=== PATIENT | female | born 1935 | race Caucasian/White ===

== ENCOUNTER 2024-01-25 14:44 | Emergency (ER) | payer OTHER, SELFPAY ==
[2024-01-25] VITALS (17 sets, daily range): BP systolic 122–180; BP diastolic 65–98; BMI 21.0
--- NOTE | 2024-01-25 15:11 | ED.GENMED ---
History of Present Illness
General
Chief Complaint: Cardiac Symptoms
Source: patient
Time Seen by Provider: 01/25/24 14:58
Travel History
Have you had any contact with someone who has COVID-19?: No
Do you have any symptoms of coronavirus? Fever > 100 degrees, chills, cough, shortness of breath, sore throat, loss of taste or smell, muscle aches, or headache?: No
History of Present Illness
History of Present Illness:
88-year-old female presents to the emergency room complaining of palpitations. Patient noted that she was feeling short of breath while doing her exercise class this morning. She also little chest discomfort. She took her vital signs and noted
that her heart rate was elevated in the 120s. Patient does have a history of atrial fibrillation. She takes amiodarone and Eliquis among other daily medications. She states she has not missed any doses. At rest the patient has no symptoms.
Past History
Past History
ED Past Medical History: Negative GERD, Hypercholesterolemia, IDDM, NIDDM or [place]
ED Past Surgical History: Gynecological and Orthopedic (Back surgery,); Negative Appendectomy, Bowel resection or Brain
Social History
Tobacco: Non-smoker
Alcohol: Daily
Drug: None
Personal: Other
Living: with family
Employment: Not employed
Family History
Family History: Other (Noncontributory)
Phy Exam
Physical Exam
Physical Exam:
General: Awake, Alert, Oriented X3. No acute distress.
Vitals: Tachycardic
Head: Atraumatic
Eyes: Pupils equal, EOMI
Throat: Airway intact, no exudates
Neck: Trachea midline
Lungs: Clear and equal b/l
Heart: irregular rate, no murmurs
Abd: Soft, Nontender, No pulsatile mass
Neuro: Nonfocal
Skin: Warm, dry, no rash
Extremities: pulses equal b/l, no edema
Course
Orders/Labs/Results
Orders:
Orders
01/25/24 14:49
Electrocardiogram (*1) Urgent
Reason for Study: Chest Pain
EKG- Treatment ONCE
01/25/24 15:13
Complete Blood Count/With Diff Urgent
TSH Reflex To Free T4 Urgent
Comment: TSH REFLEX ADDED ON BY FLOOR 4PM 01-25-24
01/25/24 15:14
Comprehensive Metabolic Panel Urgent
Prothrombin Time Urgent
Troponin I Urgent
01/25/24 15:16
Propofol [Diprivan] 20 ml .ROUTE .STK-MED
01/25/24 15:38
EKG [Electrocardiogram (*1)] Urgent
Reason for Study: Atrial Fibrillation
EKG- Treatment ONCE
01/25/24 15:56
Add On- LAB Urgent
Tests Added?: TSH with reflex T4
Abnormal Lab Results
01/25/24
15:14
BUN 23 H mg/dl
(7-17)
01/25/24 15:13
01/25/24 15:14
Vital Signs
Initial and Last Documented VS:
Initial Vital Signs
Temp Pulse Resp BP Pulse Ox
98.3 F 107 20 169/92 98
01/25/24 14:47 01/25/24 14:47 01/25/24 14:47 01/25/24 14:47 01/25/24 14:47
Last Documented Vital Signs
Temp Pulse Resp BP Pulse Ox
97.4 F 63 18 152/79 99
01/25/24 17:10 01/25/24 17:10 01/25/24 17:10 01/25/24 17:10 01/25/24 17:10
Procedures
Cardioversion
Indication:: Afib
Performed by:: Myself
Synchronized?: Yes
Energy Used: 200 joules
Number of attempts: 1
Successful?: Yes
ASA Risk Score: Class II
Any reaction or bad outcome to prior sedation/anesthesia?: No history of a reaction
Sedation level to be attained: moderate
Chart and allergies reviewed: Yes
Patient reassessed prior to sedation: Yes
Time out completed at (validating right patient & procedure): 15:43
History of difficult intubation: No
Airway free of obstruction: Yes
Patient has a gag reflex: Yes
Patient is able to open mouth: Yes
Patient has no dentures: No
Patient has no loose teeth: Yes
Medication administered by Provider during Moderate Sedation: IV Propofol (mg)
Total dose administered: 50
Time drug administered: 15:44
Start Time: 15:44
Stop Time: 15:54
MDM/Problems Addressed
Differential Diagnosis Includes:
Atrial fibrillation, atrial flutter, PACs
MDM/Problems Addressed:
EKG is consistent with atrial flutter. Patient asymptomatic while in A-fib\\flutter and would benefit from cardioversion into normal sinus rhythm. She has verified that she has been taking Eliquis twice a day every day and has not missed any doses.
Cardioversion was performed. She did have a fairly significant pauses after synchronized cardioversion. She did ultimately resume sinus rhythm with brief periods of a flutter. Ultimately she was in sinus rhythm and maintained sinus rhythm.
Patient recovered from sedation without issue. She was feeling great and anxious to be discharged home after period of observation.
Chronic conditions affecting care: Arrhythmia (Atrial fibrillation)
*Pulse Oximetry
Patient hypoxic: no
*EKG
Interpreted by ED Provider?: Yes
Interpretation: abnormal
Heart Rate: 97
Rate: normal
Rhythm: a-fib
[place]: normal axis
Interval: normal interval
QRS Pattern: normal QRS
Ischemia: no ischemia
*Fine Wire Drawer Interpretation
Rate: normal
Interpretation: abnormal
Rhythm: a-fib
*Critical Care Note
Total Time (30-74mins, 75-104mins- exclusive of procedures): Not Applicable
ED Attending Note
-
Portions of this chart may have been created with voice recognition software.� Occasional wrong word or��sound alike� substitutions may have occurred due to the inherent limitations of voice recognition software.
Discharge Plan
Departure
Patient Disposition: Home (Routine Discharge)
Date of Disposition: 01/25/24
Time of Disposition: 17:01
Patient with high blood pressure during this ER visit?: Yes
Condition: Good
Discharge Problem:
Paroxysmal A-fib
Instructions: Procedural Sedation, Adult ED, Atrial Fibrillation and Atrial Flutter ED, BLOOD PRESSURE
Prescriptions:
No Action
cyanocobalamin (vitamin B-12) [Vitamin B-12] 2,500 mcg Tablet, Sublingual
2,500 mcg SUBLINGUAL DAILY
lubiprostone 24 mcg Capsule
24 mcg PO BID
Eliquis 2.5 mg Tablet
2.5 mg PO BID
cholecalciferol (vitamin D3) [Vitamin D3] 50 mcg (2,000 unit) Tablet
50 mcg PO DAILY
magnesium oxide 400 mg magnesium Tablet
800 mg PO HS
amiodarone [Pacerone] 100 mg Tablet
100 mg PO DAILY Qty: 90 3RF
levothyroxine 25 mcg Tablet
25 mcg PO DAILY AT 0700 Qty: 90 3RF
Referrals:
Irwin Weaver MD [Active] -
NONE,* [Active] -
Interventions
Interventions:
*Risk Screen - Suicide Last Done: 01/25/24 14:47
*General Assessment Last Done: 01/25/24 15:17
*Neglect/Abuse Screening Last Done: 01/25/24 14:47
ED- Fall Risk Assessment Last Done: 01/25/24 14:47
*ED COVID-19 Vaccine History Last Done: 01/25/24 14:47
*Nursing Disposition Last Done: 01/25/24 17:10
ED- Pulmonary Assessment Last Done: 01/25/24 15:17
ED- Cardiac Assessment Last Done: 01/25/24 15:17
Discharge Date and Time
Print Language: GEORGIAN
[2024-01-25 15:19] LABS: % Basophils 1.1 % (0-2); % Eosinophils 2.1 % (0-6); % Immature Granulocytes 0.2 % (0-0.5); % Lymphocytes 27.1 % (20.5-51.1); % Monocytes 7.4 % (1.7-9.3); % Neutrophils 62.1 % (42.2-75.2); Absolute Basophils 0.1 10^3/uL (0-0.2); Absolute Eosinophils 0.2 10^3/uL (0-0.7); Absolute Lymphocytes 2.2 10^3/uL (1.2-3.4); Absolute Monocytes 0.6 10^3/uL (0.1-0.6); Absolute Neutrophils 5.1 10^3/uL (1.4-6.5); Hematocrit 40.2 % (37.0-47.0); Hemoglobin 14.1 g/dL (12.0-16.0); Mean Corp Hgb Conc. 35.1 g/dL (33.0-37.0); Mean Corpuscular Hgb 29.3 pg (27.0-31.0); Mean Corpuscular Volume 83.4 fL (81.0-99.0); Mean Platelet Volume 9.6 fL (7.4-10.4); Nucleated Red Blood Cells % 0 %; Platelet Count 258 10^3/uL (130-400); Red Blood Cell Count 4.82 10^6/uL (4.20-5.40); Red Cell Dist. Width 13.2 % (11.5-14.5); White Blood Cell Count 8.2 10^3/uL (4.8-10.8)
[2024-01-25 15:30] LABS: INR 1.13; PT 14.4 Sec (11.4-14.6)
[2024-01-25 15:41] LABS: ALT (SGPT) 17 U/L (0-35); AST (SGOT) 30 U/L (14-36); Albumin 4.8 g/dl (3.5-5.0); Alkaline Phosphatase 64 U/L (38-126); Blood Urea Nitrogen 23 mg/dl (7-17); Calcium 10.2 mg/dl (8.4-10.2); Carbon Dioxide 27 mmol/L (22-30); Chloride 105 mmol/L (98-107); Estimated Creatinine Clearance 42 ml/min; Glucose 94 mg/dl (70-99); Potassium 4.1 mmol/L (3.5-5.1); Sodium 137 mmol/L (135-145); Total Bilirubin 0.6 mg/dl (0.2-1.3); Total Protein 7.9 g/dl (6.3-8.2); eGFR > 60.00
[2024-01-25 15:55] LABS: Troponin I < 0.012 ng/ml
--- NOTE | 2024-01-25 17:10 | EDRN ---
Patient ambulated with steady gait to the bathroom. Reviewed discharge instructions with patient and her son. Verbalized understanding. Taken to car in wheelchair.
[2024-01-25 17:22] LABS: TSH Reflex To Free T4 1.83 uIU/ml (0.47-4.68)
== END 2024-01-25 17:10 | disposition home or self-care (01) ==
LOC: EMR 14:44
PROVIDERS: Emergency Medicine; EMERGENCY PHYSICIAN Emergency Medicine; FAMILY PHYSICIAN Internal Medicine
DX: R00.2 Palpitations (principal); I48.91 Unspecified atrial fibrillation; Z79.01 Long term (current) use of anticoagulants; Z90.49 Acquired absence of other specified parts of digestive tract
CPT/HCPCS: 99283; 80053; 84443; 84484; 85025; 85610; 93005

== ENCOUNTER 2024-08-06 12:52 | Day surgery (SDC) | payer OTHER, SELFPAY ==
[2024-08-06] VITALS (20 sets, daily range): BP systolic 99–153; BP diastolic 40–66
[2024-08-06 10:12] LABS: % Basophils 1.5 % (0-2); % Eosinophils 5.5 % (0-6); % Immature Granulocytes 0.6 % (0-0.5); % Lymphocytes 17.1 % (20.5-51.1); % Neutrophils 65.3 % (42.2-75.2); Absolute Basophils 0.1 10^3/uL (0-0.2); Absolute Eosinophils 0.4 10^3/uL (0-0.7); Absolute Lymphocytes 1.2 10^3/uL (1.2-3.4); Absolute Monocytes 0.7 10^3/uL (0.1-0.6); Absolute Neutrophils 4.8 10^3/uL (1.4-6.5); Hematocrit 37.3 % (37.0-47.0); Hemoglobin 12.8 g/dL (12.0-16.0); Mean Corp Hgb Conc. 34.3 g/dL (33.0-37.0); Mean Corpuscular Hgb 28.6 pg (27.0-31.0); Mean Corpuscular Volume 83.3 fL (81.0-99.0); Mean Platelet Volume 9.9 fL (7.4-10.4); Nucleated Red Blood Cells % 0 %; Platelet Count 263 10^3/uL (130-400); Red Blood Cell Count 4.48 10^6/uL (4.20-5.40); Red Cell Dist. Width 13.6 % (11.5-14.5); White Blood Cell Count 7.3 10^3/uL (4.8-10.8)
[2024-08-06 10:23] LABS: ALT (SGPT) 48 U/L (0-35); AST (SGOT) 48 U/L (14-36); Albumin 4.3 g/dl (3.5-5.0); Alkaline Phosphatase 117 U/L (38-126); Blood Urea Nitrogen 27 mg/dl (7-17); Calcium 9.6 mg/dl (8.4-10.2); Carbon Dioxide 24 mmol/L (22-30); Chloride 104 mmol/L (98-107); Glucose 76 mg/dl (70-99); Potassium 4.3 mmol/L (3.5-5.1); Sodium 143 mmol/L (135-145); Total Bilirubin 0.4 mg/dl (0.2-1.3); eGFR 48.63
[2024-08-06 10:34] LABS: NT-proBNP 1040 pg/ml; Troponin I < 0.012 ng/ml
--- NOTE | 2024-08-06 11:05 | ED.GENMED ---
History of Present Illness
<Rangel Pereira PA-C - Last Filed: 08/06/24 14:02>
General
Chief Complaint: Chest Pain
Time Seen by Provider: 08/06/24 09:52
History of Present Illness
History of Present Illness:
89-year-old female with history of A-fib on Eliquis presents for evaluation of exertional shortness of breath ongoing for the past several weeks. 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
admit for cardiac catheterization. She has no symptoms at rest. No recent fevers or chills. Denies leg swelling. Last dose of Eliquis was yesterday morning
Past History
<Rangel Pereira PA-C - Last Filed: 08/06/24 14:02>
Past History
ED Past Medical History: Negative GERD, Hypercholesterolemia, IDDM, NIDDM or [place]
ED Past Surgical History: Gynecological and Orthopedic (Back surgery,); Negative Appendectomy, Bowel resection or Brain
Social History
Tobacco: Non-smoker
Alcohol: Daily
Drug: None
Personal: Other
Living: with family
Employment: Not employed
Family History
Family History: Other (Noncontributory)
Review of Systems
<Rangel Pereira PA-C - Last Filed: 08/06/24 14:02>
Review of Systems
Allergies reviewed?: Yes
All Other Systems: ROS reviewed and negative except as documented in HPI and ROS
Phy Exam
<Rangel Pereira PA-C - Last Filed: 08/06/24 14:02>
Physical Exam
Physical Exam:
GEN: Well appearing, NAD, WDWN
HEENT: Oral mucosa moist, no scleral icterus
Cardiac: Regular rate and rhythm, no murmurs
Lung: No respiratory distress, no tachypnea, lungs clear to auscultation bilaterally
MSK: No gross deformity or injuries
Skin: Good color, no pallor or jaundice, no rashes
Neuro: AO x3, moves all extremities freely
Psych: Calm, cooperative
Scores
<Rangel Pereira PA-C - Last Filed: 08/06/24 14:02>
Heart Score for Chest Pain Patients
STEMI patient?: No
History: Highly Suspicious
ECG: Normal
Age: >/= 65 years
Risk Factors: 1 or 2 Risk Factors
Troponin: </= Normal Limit
Heart Score for Chest Pain Patients: 5
Heart Score Risk: 20.3% MACE over next 6 weeks
<Rico Faust DO - Last Filed: 08/08/24 05:24>
Heart Score for Chest Pain Patients
Heart Score for Chest Pain Patients: 5
Heart Score Risk: 20.3% MACE over next 6 weeks
Course
<Rangel Pereira PA-C - Last Filed: 08/06/24 14:02>
Orders/Labs/Results
Orders:
Orders
08/06/24 09:40
EKG [Electrocardiogram (*1)] Urgent
Reason for Study: Chest Pain
EKG- Treatment ONCE
08/06/24 09:53
CR Chest - 2 Views Urgent
Comment:
Reason For Exam: chest pain
08/06/24 Lunch
Cholesterol Lowering
At Your Request: Full Participation
Does patient need a safe tray?: No
Cholesterol Lowering: Sodium, 2 Gram
08/06/24 10:05
Complete Blood Count/With Diff Urgent
Comprehensive Metabolic Panel Urgent
NT-proBNP Urgent
Troponin I Urgent
08/06/24 11:34
Heparin 1000 Units/500 ml [Heparin] 1,000 units in 500 ml .ROUTE .STK-MED
Verapamil Injectable [Isoptin/Verapamil Injection] 5 mg .ROUTE .STK-MED ONE
08/06/24 11:35
Heparin Sodium,Porcine/Ns/Pf [Heparin 2000 Units/1000 ml] 2,000 unit in 1,000 ml .ROUTE .STK-MED
Lidocaine HCl/Pf [Xylocaine-Mpf 1% Vial] 50 mg .ROUTE .STK-MED ONE
Nitroglycerin [Tridil] 1,500 mcg .ROUTE .STK-MED ONE
08/06/24 11:38
Fentanyl Citrate/Pf [Sublimaze] 100 mcg .ROUTE .STK-MED ONE
Heparin 10,000 units .ROUTE .STK-MED ONE
Midazolam HCl [Versed] 2 mg .ROUTE .STK-MED ONE
08/06/24 12:40
Acetaminophen [Tylenol] 650 mg PO Q4HPRN PRN
Activity As Directed
Activity Level: Out of Bed- Ad Jessy
Activity Frequency: Ad Jessy
Assistant Women[employer] Procedure As Directed
Cardiac Cath Procedure: cardiac catheterization
Notify MD As Directed
Notify physician if: immediately for chest pain or bleeding from access site(s)
Radial Artery Hemostasis Method As Directed
Instructions:: 3 mL out at 2 hour post placement of band
3 mL out at 2 1/2 hours post placement of band
3 mL out at 3 hours post placement of band
Off at 3 1/2 hours post placement of band
If any oozing or hemotoma occurs:: re-inflate band and call provider
Site Checks As Directed
Check access site for bleeding/hematoma: Yes
Comment: on arrival, Q15min x4, Q30min x2, Q1 hr x2, Q2 hr x2, Q4 hr or per
protocol
Vascular Checks As Directed
Location: distal to access site - pulse check
Frequency: Other
Comment: on arrival, Q15min x4, Q30min x2, Q1 hr x2, Q2 hr x2, Q4 hr or per protocol
Vital Signs As Directed
Frequency: Other
Additional Instructions:: on arrival, Q15min x4, Q30min x2, Q1 hr x2, Q2 hr x2, then Q4 hr or per unit
protocol
08/06/24 12:45
0.9% Sodium Chloride 1000 ml [Nss] 1,000 ml IV PER PROTOCOL
Infusion rate in mL/kg/hr:: 1.5
Infusion rate in mL/hr:: 76
Duration of infusion (hours):: 3
08/06/24 13:37
Echo 2D MMode Color/Doppler [Echo 2D MMode Color/Doppler] Routine
Reason for Study: MR
Cardiology Consult: Jovan Biggs
08/06/24 14:33
Discharge Patient As Directed
Discharge patient after: 4 hours post procedure
Year Pneumococcal vaccine administered: 2020
Abnormal Lab Results
08/06/24 08/06/24 08/06/24
10:05 12:20 12:28
Absolute Monos (auto) 0.7 H 10^3/uL
(0.1-0.6)
Immature Gran % 0.6 H %
(0-0.5)
Lymphocytes % 17.1 L %
(20.5-51.1)
Monocytes % 10.0 H %
(1.7-9.3)
BUN 27 H mg/dl
(7-17)
Creatinine 1.1 H mg/dL
(0.6-1.0)
AST 48 H U/L
(14-36)
ALT 48 H U/L
(0-35)
POC ACT Low Range 190 H Seconds 260 H Seconds
(116-155) (116-155)
08/06/24 10:05
08/06/24 10:05
Vital Signs
Initial and Last Documented VS:
Initial Vital Signs
Temp Pulse Resp BP Pulse Ox
97.7 F 55 16 148/61 98
08/06/24 09:40 08/06/24 09:40 08/06/24 09:40 08/06/24 09:40 08/06/24 09:40
Last Documented Vital Signs
Temp Pulse Resp BP Pulse Ox
97.5 F 50 17 153/61 97
08/06/24 13:43 08/06/24 17:09 08/06/24 17:09 08/06/24 17:09 08/06/24 16:45
<Rico Faust, DO - Last Filed: 08/08/24 05:24>
Orders/Labs/Results
Orders:
Orders
08/06/24 09:40
EKG [Electrocardiogram (*1)] Urgent
Reason for Study: Chest Pain
EKG- Treatment ONCE
08/06/24 09:53
CR Chest - 2 Views Urgent
Comment:
Reason For Exam: chest pain
08/06/24 Lunch
Cholesterol Lowering
At Your Request: Full Participation
Does patient need a safe tray?: No
Cholesterol Lowering: Sodium, 2 Gram
08/06/24 10:05
Complete Blood Count/With Diff Urgent
Comprehensive Metabolic Panel Urgent
NT-proBNP Urgent
Troponin I Urgent
08/06/24 11:34
Heparin 1000 Units/500 ml [Heparin] 1,000 units in 500 ml .ROUTE .STK-MED
Verapamil Injectable [Isoptin/Verapamil Injection] 5 mg .ROUTE .STK-MED ONE
08/06/24 11:35
Heparin Sodium,Porcine/Ns/Pf [Heparin 2000 Units/1000 ml] 2,000 unit in 1,000 ml .ROUTE .STK-MED
Lidocaine HCl/Pf [Xylocaine-Mpf 1% Vial] 50 mg .ROUTE .STK-MED ONE
Nitroglycerin [Tridil] 1,500 mcg .ROUTE .STK-MED ONE
08/06/24 11:38
Fentanyl Citrate/Pf [Sublimaze] 100 mcg .ROUTE .STK-MED ONE
Heparin 10,000 units .ROUTE .STK-MED ONE
Midazolam HCl [Versed] 2 mg .ROUTE .STK-MED ONE
08/06/24 12:40
Acetaminophen [Tylenol] 650 mg PO Q4HPRN PRN
Activity As Directed
Activity Level: Out of Bed- Ad Jessy
Activity Frequency: Ad Jessy
Assistant Women[employer] Basketball Coach Procedure As Directed
Cardiac Cath Procedure: cardiac catheterization
Notify MD As Directed
Notify physician if: immediately for chest pain or bleeding from access site(s)
Radial Artery Hemostasis Method As Directed
Instructions:: 3 mL out at 2 hour post placement of band
3 mL out at 2 1/2 hours post placement of band
3 mL out at 3 hours post placement of band
Off at 3 1/2 hours post placement of band
If any oozing or hemotoma occurs:: re-inflate band and call provider
Site Checks As Directed
Check access site for bleeding/hematoma: Yes
Comment: on arrival, Q15min x4, Q30min x2, Q1 hr x2, Q2 hr x2, Q4 hr or per
protocol
Vascular Checks As Directed
Location: distal to access site - pulse check
Frequency: Other
Comment: on arrival, Q15min x4, Q30min x2, Q1 hr x2, Q2 hr x2, Q4 hr or per protocol
Vital Signs As Directed
Frequency: Other
Additional Instructions:: on arrival, Q15min x4, Q30min x2, Q1 hr x2, Q2 hr x2, then Q4 hr or per unit
protocol
08/06/24 12:45
0.9% Sodium Chloride 1000 ml [Nss] 1,000 ml IV PER PROTOCOL
Infusion rate in mL/kg/hr:: 1.5
Infusion rate in mL/hr:: 76
Duration of infusion (hours):: 3
08/06/24 13:37
Echo 2D MMode Color/Doppler [Echo 2D MMode Color/Doppler] Routine
Reason for Study: MR
Cardiology Consult: Jovan Biggs
08/06/24 14:33
Discharge Patient As Directed
Discharge patient after: 4 hours post procedure
Year Pneumococcal vaccine administered: 2020
Abnormal Lab Results
08/06/24 08/06/24 08/06/24
10:05 12:20 12:28
Absolute Monos (auto) 0.7 H 10^3/uL
(0.1-0.6)
Immature Gran % 0.6 H %
(0-0.5)
Lymphocytes % 17.1 L %
(20.5-51.1)
Monocytes % 10.0 H %
(1.7-9.3)
BUN 27 H mg/dl
(7-17)
Creatinine 1.1 H mg/dL
(0.6-1.0)
AST 48 H U/L
(14-36)
ALT 48 H U/L
(0-35)
POC ACT Low Range 190 H Seconds 260 H Seconds
(116-155) (116-155)
08/06/24 10:05
08/06/24 10:05
Vital Signs
Initial and Last Documented VS:
Initial Vital Signs
Temp Pulse Resp BP Pulse Ox
97.7 F 55 16 148/61 98
08/06/24 09:40 08/06/24 09:40 08/06/24 09:40 08/06/24 09:40 08/06/24 09:40
Last Documented Vital Signs
Temp Pulse Resp BP Pulse Ox
97.5 F 50 17 153/61 97
08/06/24 13:43 08/06/24 17:09 08/06/24 17:09 08/06/24 17:09 08/06/24 16:45
<Rangel Pereira PA-C - Last Filed: 08/06/24 14:02>
MDM/Problems Addressed
MDM/Problems Addressed:
Labs and chest x-ray unremarkable in the emergency department. Will plan for admission to cardiology service for further ischemic eval
<Rangel Pereira PA-C - Last Filed: 08/06/24 14:02>
*Critical Care Note
Total Time (30-74mins, 75-104mins- exclusive of procedures): Not Applicable
ED Attending Note
<Rangel Pereira PA-C - Last Filed: 08/06/24 14:02>
-
Portions of this chart may have been created with voice recognition software.� Occasional wrong word or��sound alike� substitutions may have occurred due to the inherent limitations of voice recognition software.
<Rico Faust DO - Last Filed: 08/08/24 05:24>
ED Attending Note
Patient seen and examined by attending physician: Yes
ED Attending Note:
I have reviewed and agree with history and treatment plan by Franko Pereira. My exam revealed 89-year-old female in no acute distress. She complains of no chest heaviness this time. Patient with exertional chest pain. Patient taken to [employer] by
Armand.
Discharge Plan
Departure
Patient Disposition: Admit
Date of Disposition: 08/06/24
Time of Disposition: 11:11
Presentation/result/management discussed w/ accepting MD/DO: Cardiology
Discharge Problem:
Angina pectoris
Interventions
Interventions:
*Risk Screen - Suicide Last Done: 08/06/24 09:40
*Neglect/Abuse Screening Last Done: 08/06/24 09:40
ED- Fall Risk Assessment Last Done: 08/06/24 09:56
*ED COVID-19 Vaccine History Last Done: 08/06/24 09:55
*Nursing Disposition Last Done: 08/06/24 11:52
ED- Cardiac Assessment Last Done: 08/06/24 09:56
Discharge Date and Time
Discharge Date/Time: 08/06/24 11:52
--- NOTE | 2024-08-06 12:17 | HPS.HSE ---
Family Physician
-
Family Physician: Letty Crook
Chief Complaint
-
Chest pain
History of Present Illness
89 yo WF (Bong Biggs's Mommy) h/o PAF prior PVI, HTN, Hypothyroidism, HLD statin intolerant who has been having intermittent exertional chest tightness and decreased activity tolerance over the last few months. She went to urgent care yesterday
for chest pains and they recommended she go to the ER. First troponin negative, EKG SB 1deg AVB, no sig ST changes.
Medical History
Past Medical History
Past Medical History: Reports Arrhythmia, HTN, Hypothyroidism and Other (IBS)
Past Surgical History: Reports Cardiac (PVI 06/15/22), Gynocological (ovarian cyst removal) and Orthopedic (back surgery)
Social History
Tobacco: Non-smoker
Alcohol: Daily
Family History
Family History: Not pertinent
Allergies / Home Medications
Allergies reflects when Allergies were last updated in [employer].
Home Medications with original date entered in [employer]
Allergy/Medication List:
Allergies
Allergy/AdvReac Type Severity Reaction Status Date / Time
No Known Allergies Allergy Verified 08/06/24 09:49
�Medication �Instructions �Recorded �Confirmed �Type
apixaban 2.5 mg tablet (Eliquis) 2.5 mg PO BID 04/18/22 08/06/24 History
cyanocobalamin (vitamin B-12) 2,500 mcg sublingual DAILY 04/18/22 08/06/24 History
2,500 mcg sublingual tablet
(Vitamin B-12)
cholecalciferol (vitamin D3) 50 50 mcg PO DAILY 06/15/22 08/06/24 History
mcg (2,000 unit) tablet (Vitamin
D3)
amiodarone 100 mg tablet (Pacerone) 100 mg PO DAILY #90 tabs 07/10/22 08/06/24 Rx
ezetimibe 10 mg tablet (Zetia) 10 mg PO DAILY 08/06/24 08/06/24 History
levothyroxine 75 mcg tablet 75 mcg PO DAILY 08/06/24 08/06/24 History
linaclotide 145 mcg capsule 145 mcg PO DAILY 08/06/24 08/06/24 History
(Linzess)
Review of Systems
-
A 12 point ROS was completed and negative except as noted: Yes
Physical Exam
Vital Signs
Vital Signs
Temp Pulse Resp BP Pulse Ox
97.7 F 50 20 133/56 98
08/06/24 09:40 08/06/24 11:30 08/06/24 11:30 08/06/24 11:00 08/06/24 09:40
Physical Exam
General: Well Developed and Well Nourished
HEENT: NormoCephalic and Moist mucous membranes
Respiratory: Clear and Non Labored Respirations
Cardiac: S1/S2 and Regular Rhythm
Breast: Deferred by me
GI: Soft, Non Tender and Non Distended
Skin: Warm and Dry
Neuro: AO x 3
Laboratory Results
-
08/06/24 10:05
08/06/24 10:05
Laboratory Results
Total Bilirubin 0.4 mg/dl (0.2-1.3) 08/06/24 10:05
AST 48 U/L (14-36) H 08/06/24 10:05
ALT 48 U/L (0-35) H 08/06/24 10:05
Alkaline Phosphatase 117 U/L (38-126) 08/06/24 10:05
Troponin I < 0.012 ng/ml 08/06/24 10:05
Impression/Plan
-
PCP: Dr. Crook
CDY: Rain Weaver MD
IMPRESSION/PLAN:
#Chest pain - LHC today, mild prox LAD stenosis IFr negative
RAd band per protocol, continue Zetia - statin intolerant
HR SB 40-50's unable to add BB
#PAF - currently SR, resume OAC Eliquis per IC post cath
Continue amiodarone, CHADSVASc = 5
#hypothyroidism - stable on levothyroxine 75mcg daily
continue to monitor on tele
[2024-08-06 12:26] LABS: ACT-LR - POC 190 Seconds (116-155)
[2024-08-06 12:34] LABS: ACT-LR - POC 260 Seconds (116-155)
--- NOTE | 2024-08-06 12:52 | ITS.CL.CATH ---
Conservation Assistant - Catheterization
Cardiac Catheterization
Procedure Report:
LEFT HEART CATHETERIZATION
Date of Procedure: August 06, 2024
Referring: Dr. Jovan Biggs
PROCEDURES:
1. Left heart catheterization with coronary and single-plane left ventriculography
2. Hemodynamic assessment of ostial LAD stenosis using a [place] Omni wire. The iFR serially measured above the ischemic threshold at 0.95 x 3
INDICATION: This is a very pleasant 89-year-old female with a past medical history notable for symptomatic atrial fibrillation with history of ablation on June 15, 2022 following recurrence of symptomatic atrial fibrillation. She is chronically
maintained on oral anticoagulation with apixaban and has been maintaining sinus rhythm on amiodarone 100 mg daily. She is chronically on levothyroxine for management of hypothyroid state. She reported that she has not been feeling well for several
months but experienced substernal chest tightness yesterday after completing early voting. Her symptoms were significant enough that she was seen in a local Urgent Care. She then came to [place] to be with her morally bankrupt son. She
experienced chest discomfort at lower levels of exertion and the decision was made to seek further attention and proceed with coronary angiography.
ACCESS: Right radial artery, 6 Malay sheath
HEMODYNAMICS : (mmHg)
AO (s/d) : 120/50
LV (s/d) : 126/8
LVEDP : 15
CORONARY FINDINGS
DOMINANCE: Right
LEFT MAIN: Normal
LEFT ANTERIOR DESCENDING: The LAD arises normally from the left main and runs in the anterior interventricular groove. The proximal LAD has a smooth 50% stenosis appearing more significant in the caudal views and in the cranial views. The mid to
distal LAD has only minor irregularities and the vessel wraps completely around the apex supplying a significant portion of the inferior wall. The first diagonal branch arises proximally from the LAD and is a fairly small caliber vessel. The only
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 The second diagonal branch has minor irregularities. The LAD was assessed using a [place] Omni wire with the iFR serially measuring above the
ischemic threshold at 0.95 x 3
CIRCUMFLEX: The circumflex is a moderate caliber nondominant vessel supplying a single bifurcating obtuse marginal branch
RIGHT CORONARY ARTERY: The right coronary artery is a medium caliber dominant vessel that is widely patent. Only minor luminal irregularities are noted. The PDA is patent and the posterolateral branch is patent
VENTRICULOGRAPHY: Left ventriculography is performed in an SAL projection. The digital single-plane left ventricular ejection fraction is estimated at 60%. No regional wall motion abnormalities are noted.
HEMODYNAMIC ASSESSMENT OF THE LAD WITH A PWRFO OMNI WIRE: The origin of the left main was cannulated with a 6 Fr EBU 3.5 guide catheter. Intravenous heparin was administered and the ACT was followed during the procedure. Two hundred micrograms
of intracoronary nitroglycerin was given through the guide catheter. A [place] Omni wire was advanced to the guide catheter tip and normalized to guide catheter pressure. The Omni wire was then carefully manipulated across the stenosis in the
proximal LAD stenosis and into the mid LAD where the iFR serially measured above the ischemic threshold at 0.95 x 3. The Omni wire was slowly retracted to the guide catheter where the resting Pd/Pa measured 0.99 confirming no baseline drift.
RADIATION SUMMARY: Fluoro Time (min): 5.3, Dose (mGy): 125.6, DAP (Gy.cm2) : 10
Closure Device: TR band
CONCLUSIONS
1. 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 Angiographic 50% stenosis with the iFR serially measuring above the ischemic threshold at 0.95 x 3. Normal circumflex and RCA.
2. Preserved LV systolic function
RECOMMENDATIONS:
1. Continued medical therapy and risk modification
Copy to: Dr. Jovan Biggs
[2024-08-06] MEDS: NSS 1000 IV (13:26)
== END 2024-08-06 17:23 | disposition home or self-care (01) ==
LOC: CATH 12:52
PROVIDERS: Physician Assistant; ATTENDING PHYSICIAN Internal Medicine Interventional Cardiology; EMERGENCY PHYSICIAN Emergency Medicine; FAMILY PHYSICIAN Internal Medicine
DX: I25.119 Atherosclerotic heart disease of native coronary artery with unspecified angina pectoris (principal); Z79.01 Long term (current) use of anticoagulants; Z79.899 Other long term (current) drug therapy; Z79.890 Hormone replacement therapy; E03.9 Hypothyroidism, unspecified; E78.00 Pure hypercholesterolemia, unspecified; Z82.49 Family history of ischemic heart disease and other diseases of the circulatory system; I10 Essential (primary) hypertension; K58.9 Irritable bowel syndrome, unspecified; Z98.890 Other specified postprocedural states; E11.9 Type 2 diabetes mellitus without complications; I08.1 Rheumatic disorders of both mitral and tricuspid valves; I31.39 Other pericardial effusion (noninflammatory); I48.0 Paroxysmal atrial fibrillation
CPT/HCPCS: 93799; 71046; 80053; 83880; 84484; 85025; 85347; 93005; 93306; 93458; 99285; C1769; C1894; Q9967